=== PATIENT | male | born 1960 | race Caucasian/White ===

== ENCOUNTER 2023-07-19 04:09 | Day surgery (SDC) | payer BC ==
[2023-07-13 10:13] VITALS: BMI 27.6
[2023-07-19 10:54] VITALS: RESP 18
[2023-07-19 12:44] VITALS: TEMP 97.7
[2023-07-19 13:25] VITALS: BP 134/80; PULSE 60
== END 2023-07-19 13:24 | disposition home or self-care (01) ==
LOC: JASU-ENDO 04:09
PROVIDERS: ATTEND Internal Medicine Gastroenterology
PROC: 0DJD8ZZ Inspection of Lower Intestinal Tract, Via Natural or Artificial Opening Endoscopic (ICD-10-PCS; principal; 2023-07-19 12:00)
DX: Z12.11 Encounter for screening for malignant neoplasm of colon (principal); K64.8 Other hemorrhoids; Z86.010 Personal history of colon polyps; I10 Essential (primary) hypertension